=== PATIENT | female | born 1950 | race Caucasian/White ===

== ENCOUNTER → 2018-07-20 | Outpatient (CLI) | payer MEDICARE, MEDICAID ==
[~2018-07-20] MED LIST: ACET-687 PO; ALBU1.25 NEB; AMOX1TAB60 PO; ASPI81TA61 PO; CHOL400T12 PO; FURO-81 PO; GABA300C10 PO; HYDR-3468 PO; LEVO100T PO; LISI-410 PO; METO25TA4 PO; PIPE3.375 IV; PRIM50TA PO; RIFA300C3 PO; SIMV40TA3 PO; THEO400T2 PO
== END | disposition home or self-care (01) ==
LOC: EDBD → NPLAB 11:52
PROVIDERS: ATTEND Internal Medicine Nephrology
DX: I13.0 Hypertensive heart and chronic kidney disease with heart failure and stage 1 through stage 4 chronic kidney disease, or unspecified chronic kidney disease (principal); E11.22 Type 2 diabetes mellitus with diabetic chronic kidney disease; N18.3 Chronic kidney disease, stage 3 (moderate); I50.32 Chronic diastolic (congestive) heart failure
CPT/HCPCS: 36415; 83036; 83970; 84100

== ENCOUNTER → 2018-07-22 | Outpatient (CLI) | payer MEDICARE, MEDICAID ==
[2018-07-22 13:43] LABS: CALCIUM 9.2 mg/dL (8.4-10.5); CARBON DIOXIDE 34.6 mmol/L (20.0-32)
== END | disposition home or self-care (01) ==
LOC: LAB 12:45
PROVIDERS: ATTEND Internal Medicine Nephrology
DX: I12.9 Hypertensive chronic kidney disease with stage 1 through stage 4 chronic kidney disease, or unspecified chronic kidney disease (principal); E11.22 Type 2 diabetes mellitus with diabetic chronic kidney disease; N18.3 Chronic kidney disease, stage 3 (moderate)
CPT/HCPCS: 36415; 80048; 80076; 82565; 84156

== ENCOUNTER → 2018-10-22 | Outpatient (CLI) | payer MEDICARE, MEDICAID | END | disposition home or self-care (01) | LOC: NPLAB 11:58 | PROVIDERS: ATTEND Nurse Practitioner Family | DX: E11.22 Type 2 diabetes mellitus with diabetic chronic kidney disease (principal); I13.0 Hypertensive heart and chronic kidney disease with heart failure and stage 1 through stage 4 chronic kidney disease, or unspecified chronic kidney disease; N18.3 Chronic kidney disease, stage 3 (moderate); I50.32 Chronic diastolic (congestive) heart failure | CPT/HCPCS: 36415; 83036 ==

== ENCOUNTER → 2019-02-04 | Outpatient (CLI) | payer MEDICARE, MEDICAID ==
--- NOTE | 2019-02-04 14:53 | DIREP ---
PROCEDURE:CHEST 2 VIEWS, 3 images [facility], 08/23/2017, 03:38 PM. INDICATIONS:Cor pulmonale (chronic) FINDINGS: LUNGS/PLEURA:No significant pulmonary parenchymal abnormalities. No effusions. VASCULATURE:Mildly increased pulmonary vasculature. CARDIAC:Mild cardiomegaly. MEDIASTINUM:Atherosclerotic aorta with no visible aneurysm. BONES:Mild degenerative disc disease and spondylosis without visible acute abnormalities. OTHER:Prepectoral cardiac monitoring device. CONCLUSION:Mild developing pulmonary edema/CHF. Dictated by: Jay Saba M.D. on 02/04/2019 at 01:37 PM Read in [place]
--- NOTE | 2019-02-04 18:16 | DIREP ---
PROCEDURE:NM LUNG SCAN PERFUSION&VENTIL/GARCIA COMPARISON:None. INDICATIONS:I27.81 Cor pulmonale (chronic) TECHNIQUE:After obtaining the patient's consent, a ventilation/perfusion scan was obtained using9.66 mCi Tc-99m DTPA aerosol and 5.12 mCi Tc-99m MAA intravenous. FINDINGS: VENTILATION:Normal, no significant defects. PERFUSION:No evidence of triple match. Note is made of small peripheral areas of decreased attenuation that may represent underlying pulmonary hypertension. There is subtle areas of decreased attenuation in the right upper lobe that may be sequelae of COPD. There is no evidence of multiple subsegmental defects. V/Q MISMATCH:None significant. CONCLUSION:Low probability for pulmonary embolism. Appearance is consistent with pulmonary hypertension . Correlate clinically. Dictated by: Antony Oden MD on 02/04/2019 at 06:11 PM
== END | disposition home or self-care (01) ==
LOC: RAD 14:05
PROVIDERS: ATTEND Internal Medicine Cardiovascular Disease
DX: I27.81 Cor pulmonale (chronic) (principal)
CPT/HCPCS: 71046; 78582; A9540; A9558

== ENCOUNTER → 2019-02-13 | Outpatient (CLI) | payer MEDICARE, MEDICAID ==
[2019-02-13 13:59] LABS: CALCIUM 8.9 mg/dL (8.4-10.5)
== END | disposition home or self-care (01) ==
LOC: LAB 13:23
PROVIDERS: ATTEND Internal Medicine
DX: I12.9 Hypertensive chronic kidney disease with stage 1 through stage 4 chronic kidney disease, or unspecified chronic kidney disease (principal); E11.22 Type 2 diabetes mellitus with diabetic chronic kidney disease; N18.3 Chronic kidney disease, stage 3 (moderate); J44.9 Chronic obstructive pulmonary disease, unspecified
CPT/HCPCS: 80053

== ENCOUNTER → 2019-03-13 | Outpatient (CLI) | payer MEDICARE, MEDICAID ==
[2019-03-13 10:55] LABS: BASOPHIL % 0.7 % (0.0-0.2); EOSINOPHIL # 0.3 10^3/uL (0.0-0.2); EOSINOPHIL % 6.6 % (0.0-5.0); HEMOGLOBIN 9.9 g/dL (12.0-15.0); LYMPHOCYTES # 0.7 10^3/uL (1.0-4.8); LYMPHOCYTES % 16.5 % (24.0-44.0); MEAN CELL HGB 29.6 pg (26-34); MEAN CELL HGB CONCENTRATION 29.6 g/dL (33-37); MEAN CORP VOLUME 99.7 fL (78-100); MEAN PLATELET VOLUME 11.4 fL (7.8-11.0); MONOCYTES # 0.5 10^3/uL (0.3-0.8); MONOCYTES % 10.8 % (5.0-12.0); NEUTROPHIL # 2.8 10^3/uL (1.8-7.7); NEUTROPHILS % 65.2 % (41.0-85.0); RED CELL DISTRIBUTION WIDTH 17.6 % (11.5-14.5); WHITE BLOOD CELL 4.3 10^3/uL (4.5-11.0)
[2019-03-13 11:16] LABS: CALCIUM 8.6 mg/dL (8.4-10.5); CARBON DIOXIDE 32.6 mmol/L (20.0-32)
== END | disposition home or self-care (01) ==
LOC: NPLAB 10:45
PROVIDERS: ATTEND Internal Medicine Cardiovascular Disease
DX: I13.0 Hypertensive heart and chronic kidney disease with heart failure and stage 1 through stage 4 chronic kidney disease, or unspecified chronic kidney disease (principal); I50.32 Chronic diastolic (congestive) heart failure; E11.22 Type 2 diabetes mellitus with diabetic chronic kidney disease; N18.3 Chronic kidney disease, stage 3 (moderate); E78.5 Hyperlipidemia, unspecified; E03.9 Hypothyroidism, unspecified
CPT/HCPCS: 36415; 80048; 80061; 80076; 85025; 85610

== ENCOUNTER 2019-03-21 19:34 | Emergency (ER) | payer MEDICARE, MEDICAID ==
[~2019-03-21] VITALS: Ht 160 cm; Wt 130.6 kg
[2019-03-21 19:52] VITALS: BP 114/74
--- NOTE | 2019-03-21 19:52 | NUR ---
ARRIVAL PATIENT PRESENTS WITH COMPLAINTS OF SORE TO RIGHT LOWER LEG "ON AND OFF FOR THE PAST 2 YEARS". AMBULATORY WITH WALKER WITH STEADY GAIT. PATIENT REPORTS THAT JACK SETTER REFERRED HER TO ER DUE TO EDEMA, REDNESS, AND WEEPING. DRESSING TO RIGHT LOWER LEG REMOVED BY RN, DRESSING SATURATED. SWELLING, REDNESS AND WEEPING NOTED TO RIGHT LOWER EXTREMITY. PATIENT DENIES FEVER/CHILLS, N/V/D, PAIN. DENIES TAKING ANTIBIOTICS. PATIENT CONNECTED TO MONITOR. VSS. MAXIMILIANO MD NOTIFIED.
--- NOTE | 2019-03-21 20:05 | ER.PDOC ---
General Chief Complaint: Requesting Medical Care Stated Complaint: LEG PAIN Time seen by MD: 20:05 Source: patient Exam Limitations: no limitations History of Present Illness Initial Comments Pt with "sore" on her right leg for about 2 years, recently has gained weight and her leg started weeping, although there is no pain and no fever Onset: other (chronic) Recent Injury: No Where: home Severity: moderate Exacerbated By: nothing Relieved By: nothing Allergies: Coded Allergies: Sulfa (Sulfonamide Antibiotics) (Verified Allergy, Mild, HIVES, 06/24/16) Home Meds Active Scripts Mkqxpcxyciuc-Ebpt-Tnmcbqql,Iso (ZOSYN 3.375 GM PRE MIX-BAG) 3.375 Gm/50 Ml Froz.piggy, 3.375 GM IV Q6HR for 12 Days Prov:RAINER ANGELO MD 10/28/16 Rifampin (RIFAMPIN) 300 Mg Capsule, 300 MG PO BID for 10 Days, CAPSULE Prov:RAINER ANGELO MD 10/28/16 Hydrocodone Bit/Acetaminophen (NORCO 5-325 TABLET) 5-325 Ta1 Ea Tablet, 1 EACH PO Q6HR PRN for PAIN, #20 TABLET 0 Refills Prov:RAINER ANGELO MD 10/28/16 Reported Medications Furosemide (LASIX) 20 Mg Tablet, 1 TAB PO DAILY, #120 TAB 1 Refill 12/08/16 Cholecalciferol (Vitamin D3) (VITAMIN D-400) 400 Unit Tablet, 400 UNIT PO DAILY, TABLET 06/21/16 Primidone (PRIMIDONE) 50 Mg Tablet, 50 MG PO BID, TABLET 06/21/16 Albuterol Sulfate (ALBUTEROL SULFATE) 1.25 Mg/3 Ml Vial.neb, 1 VIAL NEB TID for SHORTNESS OF BREATH, #75 MILLILITER 08/18/14 Aspirin (Children's Aspirin) 81 Mg Tab.chew, 81 MG PO DAILY, TAB.CHEW 08/18/14 Gabapentin (GABAPENTIN) 300 Mg Capsule, 2 CAP PO BID, #90 CAP 1 Refill 08/18/14 Gabapentin (GABAPENTIN) 300 Mg Capsule, 1 CAP PO NOON, #90 CAP 5 Refills 08/18/14 Metoprolol Tartrate 25MG (LOPRESSER 25MG) 25 Mg Tablet, 25 MG PO DAILY for HYPERTENSION, #60 TAB 08/18/14 Levothyroxine Sodium (SYNTHROID) 100 Mcg Tablet, 100 MCG PO DAILY, TABLET 0.5 TAB ON Sundays08/18/14 Simvastatin (SIMVASTATIN) 40 Mg Tablet, 40 MG PO DAILY, TABLET 08/18/14 Past Medical History Surgical History: cholecystectomy, hysterectomy, renal, tonsillectomy Review of Systems Musculoskeletal: see HPI Skin: see HPI All Other Systems: Reviewed and Negative Physical Exam General Appearance: Alert, No Apparent Distress Lower Extremity: swelling (edema, redness and weeping for months, sent by MAGNETIC TAPE TYPEWRITER OPERATOR f or the weeping), pedal edema Joint Exam: joints nml, nml ROM, nml gait/weight bearing Vascular: no vascular compromise, pulses full/equal Neuro/Psych: sensation nml, motor nml, oriented x3, CN's nml as tested, mood/affect nml Skin: warmth/erythema, rash Back/Neck: nml inspection EENT: eyes inspection nml, ENT inspection nml, pharynx nml Respiratory: no resp distress, breath sounds nml CVS: reg rate & rhythm, heart sounds nml Abdomen: non-tender, no organomegaly, no bruit/mass Results/Orders Results/Orders Orders - BRICE VIERA MD Cbc With Auto Diff (03/21/19 20:19) Comprehensive Metabolic Panel (03/21/19 20:19) Wound Culture & Gram Stain (03/21/19 20:34) Vital Signs Date Time Temp Pulse Resp B/P (MAP) Pulse Ox O2 Delivery O2 Flow Rate FiO2 03/21/19 20:09 98.1 80 18 03/21/19 20:09 98.1 80 18 Room Air 03/21/19 19:52 98.1 80 18 114/74 (87) 95 Room Air Laboratory Tests Test 03/21/19 20:34 White Blood Count 4.8 10^3/uL (4.5-11.0) Red Blood Count 3.44 10^6/uL (4.00-5.20) L Hemoglobin 10.2 g/dL (12.0-15.0) L Hematocrit 33.8 % (36.0-46.0) L Mean Corpuscular Volume 98.3 fL (78-100) Mean Corpuscular Hemoglobin 29.7 pg (26-34) Mean Corpuscular Hemoglobin Concent 30.2 g/dL (33-37) L Red Cell Distribution Width 17.8 % (11.5-14.5) H Platelet Count 113 10^3/uL (150-400) L Mean Platelet Volume 11.1 fL (7.8-11.0) H Neutrophils (%) (Auto) 62.8 % (41.0-85.0) Lymphocytes (%) (Auto) 15.0 % (24.0-44.0) L Monocytes (%) (Auto) 13.3 % (5.0-12.0) H Neutrophils # (Auto) 3.0 10^3/uL (1.8-7.7) Lymphocytes # (Auto) 0.7 10^3/uL (1.0-4.8) L Monocytes # (Auto) 0.6 10^3/uL (0.3-0.8) Absolute Immature Granulocyte (auto 0.01 10^3 u/L (0-2) Immature Granulocytes % 0.20 % (0.00-0.50) Eosinophils % 8.3 % (0.0-5.0) H Basophils % 0.4 % (0.0-0.2) H Basophils # 0.0 10^3/uL (0.0-0.1) Eosinophil Count 0.4 10^3/uL (0.0-0.2) H Sodium Level 142 mmol/L (132-145) Potassium Level 4.4 mmol/L (3.6-5.2) Chloride Level 104.0 mmol/L (96-109) Carbon Dioxide Level 30.9 mmol/L (20.0-32) Anion Gap 11.5 Blood Urea Nitrogen 36 mg/dL (7-18) H Creatinine 2.21 mg/dL (0.59-1.40) *H Estimated GFR () 26.7 (>/=60) BUN/Creatinine Ratio 16.0 Glucose Level 119 mg/dL (70-110) H Calcium Level 9.0 mg/dL (8.4-10.5) Total Bilirubin 0.5 mg/dL (0.2-1.0) Aspartate Amino Transferase (AST) 17 U/L (0-35) Alanine Aminotransferase (ALT) 6 U/L (12-78) L Alkaline Phosphatase 64 U/L (50-136) Total Protein 7.2 g/dL (6.4-8.2) Albumin 3.1 g/dL (3.4-5.0) L Globulin 4.1 Departure Time of Disposition: 21:24 Disposition: 01 HOME, SELF-CARE Impression: Primary Impression: Peripheral edema Additional Impression: Chronic dermatitis Condition: Stable Referrals: CORAL RIZO MAGNETIC TAPE TYPEWRITER OPERATOR (PCP) PRIMARY CARE PROVIDER Duration or Time Spent with Pa: 20 Problem Qualifiers BRICE VIERA MD Mar 21, 2019 20:05
[2019-03-21 20:30] VITALS: BP 106/60
--- NOTE | 2019-03-21 20:40 | NUR ---
WOUND CULTURE WOUND CULTURED AND TAKEN TO LAB
[2019-03-21 20:46] LABS: BASOPHIL % 0.4 % (0.0-0.2); EOSINOPHIL # 0.4 10^3/uL (0.0-0.2); EOSINOPHIL % 8.3 % (0.0-5.0); HEMOGLOBIN 10.2 g/dL (12.0-15.0); LYMPHOCYTES # 0.7 10^3/uL (1.0-4.8); MEAN CELL HGB 29.7 pg (26-34); MEAN CELL HGB CONCENTRATION 30.2 g/dL (33-37); MEAN CORP VOLUME 98.3 fL (78-100); MEAN PLATELET VOLUME 11.1 fL (7.8-11.0); MONOCYTES # 0.6 10^3/uL (0.3-0.8); MONOCYTES % 13.3 % (5.0-12.0); NEUTROPHILS % 62.8 % (41.0-85.0); RED CELL DISTRIBUTION WIDTH 17.8 % (11.5-14.5); WHITE BLOOD CELL 4.8 10^3/uL (4.5-11.0)
[2019-03-21 20:59] LABS: CARBON DIOXIDE 30.9 mmol/L (20.0-32)
[2019-03-21] MEDS ORDERED: LASIX ONE (21:22)
[2019-03-21] MEDS ORDERED: LASIX IM STA ×2 (21:23→21:26)
[2019-03-21 21:30] VITALS: BP 108/65
--- NOTE | 2019-03-21 21:45 | NUR ---
DRESSING TELFA AND GAUZE DRESSING APPLIED TO RIGHT LOWER EXTREMITY PER REQUEST OF DR VIERA.
[2019-03-21 22:00] VITALS: BP 114/67
[2019-03-21 22:12] VITALS: BP 114/67
== END 2019-03-21 22:03 | disposition home or self-care (01) ==
LOC: ER 19:34
DX: L30.9 Dermatitis, unspecified (principal); R60.0 Localized edema; Z90.49 Acquired absence of other specified parts of digestive tract; Z90.710 Acquired absence of both cervix and uterus; Z90.89 Acquired absence of other organs; Z98.890 Other specified postprocedural states; Z79.82 Long term (current) use of aspirin; Z79.899 Other long term (current) drug therapy; Z88.8 Allergy status to other drugs, medicaments and biological substances; Z79.891 Long term (current) use of opiate analgesic; Z88.2 Allergy status to sulfonamides
CPT/HCPCS: 36415; 80053; 85025; 87070; 87077; 87186 ×2; 96372; 99284; J1940

== ENCOUNTER → 2019-03-21 | Outpatient (CLI) | payer MEDICARE, MEDICAID | END | disposition home or self-care (01) | LOC: NPLAB 11:26 | PROVIDERS: ATTEND Nurse Practitioner Family | DX: L97.211 Non-pressure chronic ulcer of right calf limited to breakdown of skin (principal) | CPT/HCPCS: 87070; 87077; 87186 ==

== ENCOUNTER → 2019-04-08 | Outpatient (CLI) | payer MEDICARE, MEDICAID ==
[2019-04-08 13:08] LABS: BASOPHIL % 0.6 % (0.0-0.2); EOSINOPHIL # 0.3 10^3/uL (0.0-0.2); EOSINOPHIL % 6.4 % (0.0-5.0); HEMOGLOBIN 9.5 g/dL (12.0-15.0); LYMPHOCYTES # 0.9 10^3/uL (1.0-4.8); LYMPHOCYTES % 18.4 % (24.0-44.0); MEAN CELL HGB CONCENTRATION 30.6 g/dL (33-37); MEAN CORP VOLUME 97.8 fL (78-100); MEAN PLATELET VOLUME 11.7 fL (7.8-11.0); MONOCYTES # 0.7 10^3/uL (0.3-0.8); MONOCYTES % 15.2 % (5.0-12.0); NEUTROPHIL # 2.8 10^3/uL (1.8-7.7); NEUTROPHILS % 59.2 % (41.0-85.0); RED CELL DISTRIBUTION WIDTH 18.4 % (11.5-14.5); WHITE BLOOD CELL 4.7 10^3/uL (4.5-11.0)
[2019-04-08 13:37] LABS: CALCIUM 8.4 mg/dL (8.4-10.5); CARBON DIOXIDE 28.1 mmol/L (20.0-32)
== END | disposition home or self-care (01) ==
LOC: NPLAB 12:22
PROVIDERS: ATTEND Internal Medicine Cardiovascular Disease
DX: E11.40 Type 2 diabetes mellitus with diabetic neuropathy, unspecified (principal); E11.22 Type 2 diabetes mellitus with diabetic chronic kidney disease; I13.0 Hypertensive heart and chronic kidney disease with heart failure and stage 1 through stage 4 chronic kidney disease, or unspecified chronic kidney disease; I50.9 Heart failure, unspecified; N18.3 Chronic kidney disease, stage 3 (moderate); I87.2 Venous insufficiency (chronic) (peripheral); J44.9 Chronic obstructive pulmonary disease, unspecified
CPT/HCPCS: 80048; 80061; 80076; 85025; 85610

== ENCOUNTER → 2019-04-22 | Outpatient (CLI) | payer MEDICARE, MEDICAID ==
[2019-04-22 09:51] LABS: BILIRUBIN,URINE NEGATIVE (NEGATIVE); UROBILINOGEN,URINE NORMAL (NEGATIVE)
[2019-04-22 09:52] LABS: APPEARANCE,URINE CLEAR (CLEAR); UA COLOR YELLOW (YELLOW)
[2019-04-22 10:05] LABS: CALCIUM 8.8 mg/dL (8.4-10.5); CARBON DIOXIDE 34.1 mmol/L (20.0-32)
[2019-04-22 10:11] LABS: ABG PCO2 51.2 mmHg (35.0-45.0); ABG PH 7.383 (7.350-7.450); BE(B) 3.9 mmol/L (-2.0-2.0); HCO3act 29.8 mmol/L (22.0-26.0); pO2 52.7 mmHg (80.0-100.0)
== END | disposition home or self-care (01) ==
LOC: LAB 09:18
PROVIDERS: ATTEND Internal Medicine Infectious Disease
DX: I12.9 Hypertensive chronic kidney disease with stage 1 through stage 4 chronic kidney disease, or unspecified chronic kidney disease (principal); N18.4 Chronic kidney disease, stage 4 (severe); E87.70 Fluid overload, unspecified
CPT/HCPCS: 36415; 36600; 80053; 81002; 82803; 83735

== ENCOUNTER → 2019-05-07 | Outpatient (CLI) | payer MEDICARE, MEDICAID ==
--- NOTE | 2019-05-07 16:54 | DIREP ---
PROCEDURE:Digital Screening Mammogram TECHNIQUE:MLO and CC digital images of each breast are provided. Computer Assisted Detection (CAD) was utilized. COMPARISON:[facility], MAMMO BILATERAL SCREENING, 01/26/2015, 03:37 PM. [facility], MAMMO BILATERAL SCREENING, 04/19/2016, 03:03 PM. INDICATIONS:SCREENING BREAST COMPOSITION:The breasts are almost entirely fatty. FINDINGS:There are no grouped microcalcifications, masses, or architectural distortions to suggest malignancy. There is no significant change as compared with the previous examination(s). IMPRESSION:No mammographic evidence of malignancy. RECOMMENDATIONS:Routine Screening Mammography per [employer] guidelines. OVERALL FINAL ASSESSMENT:BI-RADS 1 - Negative Mammogram Note: This facility participates in a mammography screening patient reminder system. Dictated by: Nakul Mccullough DO on 05/07/2019 at 04:51 PM
--- NOTE | 2019-05-08 07:07 | DIREP ---
PROCEDURE:BONE DENSITY PERIPHERAL INDICATIONS:OSTEOPOROSIS COMPARISON:None. FINDINGS: Femur Proximal RIGHT femur bone mineral density (BMD) (g/cm2): 0.838 T-score : -1.4 Proximal LEFT femur bone mineral density (BMD) (g/cm2): 0.796T-score: -1.7 Lumbar Lumbar bone mineral density (BMD) (g/cm2): 1.396T-score : 1.6 Imaging- No significant findings CONCLUSION:1. Osteopenia 2. Based on the [place] FRAX study, the patient's 10-year probability of a major osteoporotic fracture (clinical spine, forearm, hip or shoulder) is 8.3 %, and the 10-year probability of a hip fracture is 1.1 %. SUGGESTED RECOMMENDATIONS: Normal & Osteopenia:Consideration should be given to use of calcium supplementation, daily multiple vitamins and adequate exercise, as preventive measures against osteoporosis, if clinically indicated. Osteoporosis & Severe Osteoporosis:In addition to the above, consideration should be given to medical therapy against osteoporosis, if clinically indicated. Dictated by: Nakul Mccullough DO on 05/08/2019 at 07:05 AM
== END | disposition home or self-care (01) ==
LOC: RAD 14:23
PROVIDERS: ATTEND Nurse Practitioner Family
DX: Z12.31 Encounter for screening mammogram for malignant neoplasm of breast (principal); M85.88 Other specified disorders of bone density and structure, other site
CPT/HCPCS: 77067; 77080

== ENCOUNTER → 2019-06-13 | Outpatient (CLI) | payer MEDICARE, MEDICAID ==
[~2019-06-13] MED LIST changes: +SIMV40TA20 PO; -SIMV40TA3 PO
[2019-06-13 14:22] LABS: MEAN CORP HGB 30.8 pg (26-34)
[2019-06-13 14:33] LABS: CALCIUM 8.7 mg/dL (8.4-10.5); CARBON DIOXIDE 29.4 mmol/L (20.0-32)
== END | disposition home or self-care (01) ==
LOC: NPLAB 14:11
PROVIDERS: ATTEND Internal Medicine Cardiovascular Disease
DX: I13.0 Hypertensive heart and chronic kidney disease with heart failure and stage 1 through stage 4 chronic kidney disease, or unspecified chronic kidney disease (principal); N18.9 Chronic kidney disease, unspecified
CPT/HCPCS: 80048; 80061; 80076; 85027; 85610

== ENCOUNTER 2019-07-15 09:52 | Emergency (ER) | payer MEDICARE, MEDICAID ==
[~2019-07-15] VITALS: Ht 165.1 cm; Wt 138.3 kg
[2019-07-15 09:52] VITALS: BP 122/83
[2019-07-15] MEDS ORDERED: ULTRAM PO STA (10:40)
--- NOTE | 2019-07-15 10:47 | ER.PDOC ---
General Chief Complaint: Requesting Medical Care Stated Complaint: FALL Time seen by MD: 10:43 Source: patient Exam Limitations: no limitations History of Present Illness Initial Comments Head, neck, left arm and bilateral knee pain S/P fall. Patient was walking out her dog when she tripped and fell. No loss of consciousness. Occurred: just prior to arrival Where: home Severity: moderate Injuries/Pain Location: head, neck, upper extremity, lower extremity Context: Tripped Loss of Consciousness: No Loss of Consciousness Associated Symptoms: neck pain Allergies: Coded Allergies: Sulfa (Sulfonamide Antibiotics) (Verified Allergy, Mild, HIVES, 06/24/16) MEDS Active Scripts Xdbdaxztqcpw-Sadv-Qyyvclzj,Iso (ZOSYN 3.375 GM PRE MIX-BAG) 3.375 Gm/50 Ml Froz.piggy, 3.375 GM IV Q6HR for 12 Days Prov:RAINER ANGELO MD 10/28/16 Rifampin (RIFAMPIN) 300 Mg Capsule, 300 MG PO BID for 10 Days, CAPSULE Prov:RAINER ANGELO MD 10/28/16 Hydrocodone Bit/Acetaminophen (NORCO 5-325 TABLET) 5-325 Ta1 Ea Tablet, 1 EACH PO Q6HR PRN for PAIN, #20 TABLET 0 Refills Prov:RAINER ANGELO MD 10/28/16 Reported Medications Furosemide (LASIX) 20 Mg Tablet, 1 TAB PO DAILY, #120 TAB 1 Refill 12/08/16 Cholecalciferol (Vitamin D3) (VITAMIN D-400) 400 Unit Tablet, 400 UNIT PO DAILY, TABLET 06/21/16 Primidone (PRIMIDONE) 50 Mg Tablet, 50 MG PO BID, TABLET 06/21/16 Albuterol Sulfate (ALBUTEROL SULFATE) 1.25 Mg/3 Ml Vial.neb, 1 VIAL NEB TID for SHORTNESS OF BREATH, #75 MILLILITER 08/18/14 Aspirin (Children's Aspirin) 81 Mg Tab.chew, 81 MG PO DAILY, TAB.CHEW 08/18/14 Gabapentin (GABAPENTIN) 300 Mg Capsule, 2 CAP PO BID, #90 CAP 1 Refill 08/18/14 Gabapentin (GABAPENTIN) 300 Mg Capsule, 1 CAP PO NOON, #90 CAP 5 Refills 08/18/14 Metoprolol Tartrate 25MG (LOPRESSER 25MG) 25 Mg Tablet, 25 MG PO DAILY for HYPERTENSION, #60 TAB 08/18/14 Levothyroxine Sodium (SYNTHROID) 100 Mcg Tablet, 100 MCG PO DAILY, TABLET 0.5 TAB ON Sundays08/18/14 Simvastatin (SIMVASTATIN) 40 Mg Tablet, 40 MG PO DAILY, TABLET 08/18/14 Past Medical History Medical History: congestive heart failure, COPD, diabetes, GERD, hypertension, renal disease, vascular disease Surgical History: angioplasty, cholecystectomy, tonsillectomy Social History Smoking: non-smoker Alcohol Use: none Drug Use: none Review of Systems Constitutional: no symptoms reported Respiratory: no symptoms reported Cardiovascular: no symptoms reported Gastrointestinal: no symptoms reported Musculoskeletal: see HPI All Other Systems: Reviewed and Negative Physical Exam General Appearance: No Apparent Distress, WD/WN Head: No Evidence of Injury Ears, Nose, Mouth, Throat: Hearing Grossly Normal Neck: Tenderness Cardiovascular/Respiratory: Regular Rate, Rhythm, No M/R/G, Normal Peripheral Pulses, No JVD, Normal Breath Sounds, No Respiratory Distress Gastrointestinal: Normal Bowel Sounds, No Organomegaly, No Pulsatile Mass, Non Tender, Soft Back: Normal Inspection, No CVA Tenderness, No Vertebral Tenderness Extremities: Tenderness (left arm and bilateral knees), Other (both legs wrapped with a dressing. 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 NML as Tested, No Motor/Sensory Deficits, Alert, Normal Mood/Affect, Oriented x 3 Melinda Coma Score Best Eye Response: (4) Open Spontaneously Best Verbal Response: (5) Oriented Best Motor Response: (6) Obeys Commands Joint Reduction Joint Reduction : Joint Reduction Site: shoulder (L) Conscious Sedation: Yes Reduction Attempts: 1 Pre-Procedure NV Exam: Yes Post-Procedure NV Exam: Yes Post Joint Reduction Film: joint reduced Results/Orders Results/Orders Orders - JOSE ELIAS JC MD Ct Head Wo Contrast (07/15/19 10:40) Ct Cervical Spine (07/15/19 10:40) Xr Knee Rt 2v (07/15/19 10:40) Xr Knee Lt 2v (07/15/19 10:40) Xr Humerus Lt (07/15/19 10:40) Tramadol Hcl (Ultram) (07/15/19 10:40) Tramadol Hcl (Ultram) (07/15/19 10:50) Diazepam (Valium) (07/15/19 11:56) Morphine Sulfate (Morphine Sulfate) (07/15/19 12:00) Flumazenil (Romazicon) (07/15/19 12:28) Flumazenil (Romazicon) (07/15/19 12:30) Xr Shoulder Lt 1v (07/15/19 12:30) Vital Signs Date Time Temp Pulse Resp B/P (MAP) Pulse Ox O2 Delivery O2 Flow Rate FiO2 07/15/19 12:16 98.2 89 16 130/88 (102) 07/15/19 12:02 98.2 88 16 131/89 (103) 07/15/19 09:52 97.5 85 16 07/15/19 09:52 94.5 85 16 99 Room Air Administered Medications Medications (Trade) Dose Ordered Sig/Manjinder Route PRN Reason Start Time Stop Time Status Last Admin Dose Admin Flumazenil (Romazicon) 0.5 mg STAT STAT IV 07/15/19 12:30 07/15/19 12:31 DC 07/15/19 12:33 0.5 MG Tramadol HCl (Ultram) 50 mg STAT STAT PO 07/15/19 10:40 07/15/19 10:43 DC 07/15/19 11:00 50 MG EKG/XRAY/CT/US XRAY: knee (Nothing acute on both knees) XRAY Comments: Left shoulder dislocation CT Comments: No fracture of C spine and no acute intracranial abnormality XRAY Comments: Successful reduction of left shoulder Departure Time of Disposition: 13:15 Disposition: 01 HOME, SELF-CARE Impression: Primary Impression: Shoulder joint dislocation Additional Impression: Multiple contusions Condition: Improved Referrals: CORAL RIZO MARBLE MACHINE TENDER (PCP) PRIMARY CARE PROVIDER Additional Instructions: Tylenol Leave sling in place until you follow up with Dr. Lackey F/U with Dr. Lackey in 1-2 days, call for appointment Return to ED if worsening symptoms or concerns. Duration or Time Spent with Pa: 45 mins Problem Qualifiers JOSE ELIAS JC MD Jul 15, 2019 10:47
[2019-07-15] MEDS ORDERED: ULTRAM ONE (10:50)
--- NOTE | 2019-07-15 11:31 | DIREP ---
PROCEDURE:XRAY HUMERUS MIN 2 VWS-LT COMPARISON:None. INDICATIONS:Pain/injury S/P fall FINDINGS: BONES:There is anterior dislocation of the left shoulder. The left humeral head is anterior to the glenoid consistent with dislocation. Recommend follow-up left shoulder views. On the AP and lateral views of the left humerus, no fracture of the shaft of the left humerus is seen. No fracture of the left humeral head or neck is seen. JOINTS:Anterior dislocation of the left shoulder. Downsloping acromion causes mild impingement. SOFT TISSUES:Normal. OTHER:No additional findings. CONCLUSION:Anterior dislocation of the left shoulder. No fracture seen in the left humerus. Dictated by: Carson Cui MD on 07/15/2019 at 11:29 AM
--- NOTE | 2019-07-15 11:32 | DIREP ---
PROCEDURE:XRAY KNEE 2 VWS-LT COMPARISON:None. INDICATIONS:Pain/injury S/P fall FINDINGS: BONES:Three views of the left knee. Left knee arthroplasty seen with mild valgus deformity of the left knee. Epiphyseal line of fusion involving the left proximal fibula on the AP view. No fracture is seen on the lateral view. No definite evidence for loosening is seen. No joint effusion or loose bodies identified. JOINTS:Normal. SOFT TISSUES:Normal. OTHER:No additional findings. CONCLUSION:Left knee arthroplasty. No acute fracture is seen. No evidence for loosening. Dictated by: Carson Cui MD on 07/15/2019 at 11:30 AM
--- NOTE | 2019-07-15 11:34 | DIREP ---
PROCEDURE:CT HEAD OR BRAIN W/O CONTRAST COMPARISON:None. INDICATIONS:Pain/injury S/P fall TECHNIQUE:CT images were created without intravenous contrast. FINDINGS: VENTRICLES:The ventricles are normal in size and configuration. CEREBRUM:Normal cerebral morphology with appropriate lagos white matter differentiation. Mild basal ganglia calcifications. CEREBELLUM:Cerebellar calcifications. BRAINSTEM:Negative. BASAL CISTERNS:Negative. HEMORRHAGE:No MASS LESION:No ACUTE INFARCT:No SKULL:Normal. SINUSES:Normal. OTHER:None CONCLUSION: 1. No acute findings. Dictated by: Tushar Michaels MD on 07/15/2019 at 11:22 AM
--- NOTE | 2019-07-15 11:34 | DIREP ---
PROCEDURE:XRAY KNEE 2 VWS-RT COMPARISON:None. INDICATIONS:Pain/injury S/P fall FINDINGS: BONES:AP and lateral views of the right knee. High riding patella. Right knee arthroplasty noted. No radiographic evidence for loosening. No fracture is seen in the distal right femur, the tibial plateau or the proximal right fibula. No obvious joint effusion or loose bodies are seen. JOINTS:Right knee arthroplasty. 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 SOFT TISSUES:Normal. OTHER:No additional findings. CONCLUSION:Right knee arthroplasty. 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 Dictated by: Carson Cui MD on 07/15/2019 at 11:32 AM
--- NOTE | 2019-07-15 11:38 | DIREP ---
PROCEDURE:CT CERVICAL SPINE WITHOUT CONTRAST TECHNIQUE:Axial cuts were obtained through the cervical spine. The images were viewed at bone and soft tissue settings. Sagittal and coronal reconstructions are provided. COMPARISON:None. INDICATIONS:Pain/injury S/P fall FINDINGS: ALIGNMENT:Normal. VERTEBRAE:Normal. Limited for visualization of the C7 spinous process. Unfused posterior arch of C1. No acute deformities. PARASPINAL AREA:Normal. OTHER:Numerous surgical clips in the neck bilaterally. CERVICAL DISC LEVELS Prominent right C2-3 and C3-4 facet arthropathy. Mild disc space narrowing at C5-6, [id number]-do-nubdibsg disc space narrowing at C6-7. Dorsal disc bulges are present at C5-6 and C6-7. CONCLUSION: 1. Limited for the C7 spinous process. 2. No fractures or subluxations. 3. Prominent right C2-3 and C3-4 facet arthropathy. 4. Mild C5-6 and gjzq-mz-yucbrsce C6-7 degenerative disc disease. Dictated by: Tushar Michaels MD on 07/15/2019 at 11:33 AM
[2019-07-15] MEDS ORDERED: VALIUM ONE (11:56)
[2019-07-15] MEDS ORDERED: MORPHINE SULFATE ONE (12:00)
[2019-07-15 12:02] VITALS: BP 131/89
[2019-07-15 12:16] VITALS: BP 130/88
[2019-07-15] MEDS ORDERED: ROMAZICON IV ONE (12:28)
[2019-07-15] MEDS ORDERED: ROMAZICON IV STA (12:30)
--- NOTE | 2019-07-15 12:48 | DIREP ---
PROCEDURE:XRAY SHOULDER 1 VW-LT COMPARISON:[facility], CR, XRAY HUMERUS MIN 2 VWS-LT, 07/15/2019, 11:17 AM. INDICATIONS:S/P reduction FINDINGS: BONES:The anterior dislocation of the left shoulder has been reduced. No obvious Hill-Sachs or Bankart lesion is seen. Downsloping acromion causes impingement JOINTS:Normal glenohumeral and acromioclavicular joints. No gross evidence for dislocation. SOFT TISSUES:Normal. OTHER:No obvious left upper rib fractures or pneumothorax is seen. CONCLUSION:Reduction of the anterior dislocation of the left shoulder. No Hill-Sachs or Bankart lesion is seen. Dictated by: Carson Cui MD on 07/15/2019 at 12:46 PM
[2019-07-15 13:30] VITALS: BP 128/82
== END 2019-07-15 13:35 | disposition home or self-care (01) ==
LOC: ER 09:52 → EDBD 09:52 → ER 13:35
DX: S43.085A Other dislocation of left shoulder joint, initial encounter (principal); W01.0XXA Fall on same level from slipping, tripping and stumbling without subsequent striking against object, initial encounter; Y93.89 Activity, other specified; Y92.098 Other place in other non-institutional residence as the place of occurrence of the external cause; Y99.8 Other external cause status; S80.02XA Contusion of left knee, initial encounter; S80.01XA Contusion of right knee, initial encounter; S10.93XA Contusion of unspecified part of neck, initial encounter; E11.9 Type 2 diabetes mellitus without complications; I11.0 Hypertensive heart disease with heart failure; I50.9 Heart failure, unspecified; J44.9 Chronic obstructive pulmonary disease, unspecified; K21.9 Gastro-esophageal reflux disease without esophagitis; Y93.01 Activity, walking, marching and hiking; Z79.82 Long term (current) use of aspirin; Z79.899 Other long term (current) drug therapy; Z88.2 Allergy status to sulfonamides; Z90.49 Acquired absence of other specified parts of digestive tract
CPT/HCPCS: 23650; 70450; 72125; 73020; 73060; 73560 ×2; 96374; 99152; 99153; 99285; J2270; J3360; J3490

== ENCOUNTER 2019-07-16 05:44 | Emergency (ER) | payer MEDICARE, MEDICAID ==
[~2019-07-16] VITALS: Ht 157.5 cm; Wt 136.1 kg
[2019-07-16] VITALS (7 sets, daily range): BP systolic 101–137; BP diastolic 48–78
[2019-07-16 06:22] LABS: BASOPHIL % 0.6 % (0.0-0.2); EOSINOPHIL # 0.2 10^3/uL (0.0-0.2); EOSINOPHIL % 2.8 % (0.0-5.0); HEMOGLOBIN 9.3 g/dL (12.0-15.0); LYMPHOCYTES # 0.7 10^3/uL (1.0-4.8); LYMPHOCYTES % 12.9 % (24.0-44.0); MEAN CELL HGB 31.3 pg (26-34); MEAN CELL HGB CONCENTRATION 30.8 g/dL (33-37); MEAN CORP VOLUME 101.7 fL (78-100); MEAN PLATELET VOLUME 10.3 fL (7.8-11.0); MONOCYTES # 0.9 10^3/uL (0.3-0.8); NEUTROPHIL # 3.7 10^3/uL (1.8-7.7); NEUTROPHILS % 67.5 % (41.0-85.0); RED CELL DISTRIBUTION WIDTH 17.3 % (11.5-14.5); WHITE BLOOD CELL 5.4 10^3/uL (4.5-11.0)
--- NOTE | 2019-07-16 06:33 | NUR ---
US ATTEMPTED TO NOTIFY MALIKA IN RAD FOR NEED FOR ULTRASOUND. NO ANSWER
[2019-07-16] MEDS ORDERED: MORPHINE SULFATE IV STA (06:36)
[2019-07-16 06:41] LABS: CALCIUM 8.8 mg/dL (8.4-10.5); CARBON DIOXIDE 28.7 mmol/L (20.0-32)
--- NOTE | 2019-07-16 06:44 | ER.PDOC ---
General Chief Complaint: Extremities Stated Complaint: LEFT ARM PAIN Time seen by MD: 06:37 Source: patient Exam Limitations: no limitations History of Present Illness Initial Comments Left arm pain S/P fall yesterday. Shoulder was dislocated and successfully reduced. A sling was applied and patient told to follow up with Dr. Lackey. She is back today because of pain. Occurred: yesterday Recent Injury: Yes Context: Fall Where: home Severity: moderate Exacerbated By: movement of Relieved By: nothing Quality: pain, swelling, tenderness Allergies: Coded Allergies: Sulfa (Sulfonamide Antibiotics) (Verified Allergy, Mild, HIVES, 06/24/16) Home Meds Active Scripts Cmgbqznoilqs-Emrw-Gbziuhbp,Iso (ZOSYN 3.375 GM PRE MIX-BAG) 3.375 Gm/50 Ml Froz.piggy, 3.375 GM IV Q6HR for 12 Days Prov:RAINER ANGELO MD 10/28/16 Rifampin (RIFAMPIN) 300 Mg Capsule, 300 MG PO BID for 10 Days, CAPSULE Prov:RAINER ANGELO MD 10/28/16 Hydrocodone Bit/Acetaminophen (NORCO 5-325 TABLET) 5-325 Ta1 Ea Tablet, 1 EACH PO Q6HR PRN for PAIN, #20 TABLET 0 Refills Prov:RAINER ANGELO MD 10/28/16 Reported Medications Furosemide (LASIX) 20 Mg Tablet, 1 TAB PO DAILY, #120 TAB 1 Refill 12/08/16 Cholecalciferol (Vitamin D3) (VITAMIN D-400) 400 Unit Tablet, 400 UNIT PO DAILY, TABLET 06/21/16 Primidone (PRIMIDONE) 50 Mg Tablet, 50 MG PO BID, TABLET 06/21/16 Albuterol Sulfate (ALBUTEROL SULFATE) 1.25 Mg/3 Ml Vial.neb, 1 VIAL NEB TID for SHORTNESS OF BREATH, #75 MILLILITER 08/18/14 Aspirin (Children's Aspirin) 81 Mg Tab.chew, 81 MG PO DAILY, TAB.CHEW 08/18/14 Gabapentin (GABAPENTIN) 300 Mg Capsule, 2 CAP PO BID, #90 CAP 1 Refill 08/18/14 Gabapentin (GABAPENTIN) 300 Mg Capsule, 1 CAP PO NOON, #90 CAP 5 Refills 08/18/14 Metoprolol Tartrate 25MG (LOPRESSER 25MG) 25 Mg Tablet, 25 MG PO DAILY for HYPERTENSION, #60 TAB 1/5/15 Levothyroxine Sodium (SYNTHROID) 100 Mcg Tablet, 100 MCG PO DAILY, TABLET 0.5 TAB ON Sundays08/18/14 Simvastatin (SIMVASTATIN) 40 Mg Tablet, 40 MG PO DAILY, TABLET 08/18/14 Past Medical History Medical History: COPD, diabetes Surgical History: appendectomy Social History Alcohol Use: none Drug Use: none Review of Systems Constitutional: no symptoms reported EENTM: no symptoms reported Respiratory: no symptoms reported Cardiovascular: no symptoms reported Gastrointestinal: no symptoms reported Musculoskeletal: see HPI All Other Systems: Reviewed and Negative Physical Exam General Appearance: alert, no distress, other (obese) Upper Extremity: tenderness (left arm), swelling (with mild edema), limited ROM Skin: color nml, warm/dry Vascular: no vascular compromise Neuro/Psych: sensation nml, motor nml Central Exam: oriented X3, CN's nml as tested, nml speech, nml cognition, nml mood/affect Neck/Back: nml inspection Respiratory: no resp distress, breath sounds nml CVS: reg rate & rhythm, heart sounds nml Abdomen: non-tender, no organomegaly, nml bowels sounds Joint Reduction Joint Reduction : Joint Reduction Site: shoulder (L) Conscious Sedation: Yes Reduction Attempts: 1 Pre-Procedure NV Exam: Yes Post-Procedure NV Exam: Yes Post Joint Reduction Film: joint reduced Progress Shoulder reduced using traction/counter-traction. Additional Procedures Progress Conscious sedation: Pt sedated using propofol, 60mg over 1 min administered. Pt sedated well, no hypoxia or complications. No hypotension, no reversal needed. Pt tolerated procedure well. Pt re-eval'd after sedation and was back to baseline mental status. See sheet for times. Results/Orders Results/Orders Orders - ZANDER VILLA DO Propofol/Pf (Diprivan) (07/16/19 07:52) 0.9 % Sodium Chloride (Ns 500ml) (07/16/19 08:26) Xr Shoulder Lt 1v (07/16/19 09:11) Vital Signs Date Time Temp Pulse Resp B/P (MAP) Pulse Ox O2 Delivery O2 Flow Rate FiO2 07/16/19 05:44 97.9 114 20 132/70 (90) 97 Nasal Canula 2.00 07/16/19 05:44 97.9 114 20 97 07/16/19 05:44 97.9 114 20 Administered Medications Medications (Trade) Dose Ordered Sig/Manjinder Route PRN Reason Start Time Stop Time Status Last Admin Dose Admin Morphine Sulfate (Morphine Sulfate) 4 mg STAT STAT IV 07/16/19 06:36 07/16/19 06:37 DC 07/16/19 07:10 4 MG Laboratory Tests Test 07/16/19 06:15 White Blood Count 5.4 10^3/uL (4.5-11.0) Red Blood Count 2.97 10^6/uL (4.00-5.20) L Hemoglobin 9.3 g/dL (12.0-15.0) L Hematocrit 30.2 % (36.0-46.0) L Mean Corpuscular Volume 101.7 fL (78-100) H Mean Corpuscular Hemoglobin 31.3 pg (26-34) Mean Corpuscular Hemoglobin Concent 30.8 g/dL (33-37) L Red Cell Distribution Width 17.3 % (11.5-14.5) H Platelet Count 133 10^3/uL (150-400) L Mean Platelet Volume 10.3 fL (7.8-11.0) Neutrophils (%) (Auto) 67.5 % (41.0-85.0) Lymphocytes (%) (Auto) 12.9 % (24.0-44.0) L Monocytes (%) (Auto) 16.0 % (5.0-12.0) H Neutrophils # (Auto) 3.7 10^3/uL (1.8-7.7) Lymphocytes # (Auto) 0.7 10^3/uL (1.0-4.8) L Monocytes # (Auto) 0.9 10^3/uL (0.3-0.8) H Absolute Immature Granulocyte (auto 0.01 10^3 u/L (0-2) Immature Granulocytes % 0.20 % (0.00-0.50) Eosinophils % 2.8 % (0.0-5.0) Basophils % 0.6 % (0.0-0.2) H Basophils # 0.0 10^3/uL (0.0-0.1) Eosinophil Count 0.2 10^3/uL (0.0-0.2) Prothrombin Time 12.0 SEC (9.4-11.5) H Prothrombin Time INR (Non-Therap) 1.2 Activated Partial Thromboplast Time 29.1 SEC (24.67-30.72) D-Dimer 0.88 mg/L (0.19-0.49) *H Sodium Level 140 mmol/L (132-145) Potassium Level 4.6 mmol/L (3.6-5.2) Chloride Level 103.0 mmol/L (96-109) Carbon Dioxide Level 28.7 mmol/L (20.0-32) Anion Gap 12.9 Blood Urea Nitrogen 38 mg/dL (7-18) H Creatinine 2.24 mg/dL (0.59-1.40) *H Estimated GFR () 26.2 (>/=60) BUN/Creatinine Ratio 16.0 Glucose Level 132 mg/dL (70-110) H Calcium Level 8.8 mg/dL (8.4-10.5) Total Bilirubin 1.0 mg/dL (0.2-1.0) Aspartate Amino Transferase (AST) 17 U/L (0-35) Alanine Aminotransferase (ALT) 11 U/L (12-78) L Alkaline Phosphatase 78 U/L (50-136) Total Protein 7.8 g/dL (6.4-8.2) Albumin 3.1 g/dL (3.4-5.0) L Globulin 4.7 Progress Progress Care of patient transferred to Dr. Villa at 7am x-ray shows good reduction of GH dislocation.Pt was neuro intact after reduction. Spoke with hospitalist, asked to transfer due to cardio-renal failure, no nephro availability here, no cardiology on-call. Pt is unable to care for herself as she needs significant assistance to even get out of bed. Home health nurse called here with concern for the pt and confirmed pt's inability to care for self. I spoke with [facility] and pt was accepted by Dr. Pedersen. 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
[2019-07-16] MEDS ORDERED: MORPHINE SULFATE ONE (06:47)
--- NOTE | 2019-07-16 07:32 | DIREP ---
PROCEDURE:XRAY FOREARM 2 VWS-LT COMPARISON:None. INDICATIONS:Pain/injury FINDINGS: BONES:Normal. JOINTS:Degenerative changes. SOFT TISSUES:Diffuse reticular superficial soft tissue edema. OTHER:No additional findings. CONCLUSION:No acute bony abnormality. Dictated by: Radha Robins MD on 07/16/2019 at 07:29 AM
--- NOTE | 2019-07-16 07:34 | DIREP ---
PROCEDURE:XRAY HUMERUS 1 VWS-LT COMPARISON:[facility], CR, XRAY SHOULDER 1 VW-LT, 07/15/2019, 12:26 PM. [facility], CR, XRAY HUMERUS MIN 2 VWS-LT, 07/15/2019, 11:17 AM. INDICATIONS:Pain/injury, fall FINDINGS: BONES:No acute fracture seen. JOINTS:Persistent anterior glenohumeral dislocation with impaction of the posterior lateral humeral head against the inferior glenoid. Degenerative changes. SOFT TISSUES:Normal. OTHER:No additional findings. CONCLUSION:Persistent left anterior glenohumeral dislocation. Dictated by: Radha Robins MD on 07/16/2019 at 07:31 AM
[2019-07-16] MEDS ORDERED: DIPRIVAN 100 ML IV ONE (07:52)
[2019-07-16] MEDS ORDERED: NS 500ML 500 ML IV ONE (08:26)
--- NOTE | 2019-07-16 08:53 | NUR ---
UPDATE CALLED RT TO ROOM FOR REDUCTION.
--- NOTE | 2019-07-16 08:59 | NUR ---
UPDATE DR. MUELLER AT BEDSIDE FOR LEFT SHOULDER REDUCATION. SEE MODERATE SEDATION PAPER DOCUMENTATION.
--- NOTE | 2019-07-16 09:15 | NUR ---
UPDATE DR. MUELLER ON THE PHONE WITH DR. ROOT ABOUT ADMIT.
--- NOTE | 2019-07-16 09:25 | NUR ---
UPDATE DR. MUELLER ON THE PHONE WITH [facility] ABOUT TRANSFER PATIENT NOT ACCEPTED BY DR. ROOT.
--- NOTE | 2019-07-16 09:36 | DIREP ---
PROCEDURE:XRAY SHOULDER 1 VW-LT COMPARISON:[facility], CR, XRAY HUMERUS MIN 2 VWS-LT, 07/16/2019, 06:25 AM. [facility], CR, XRAY FOREARM 2 VWS-LT, 07/16/2019, 06:25 AM. [facility], CR, XRAY SHOULDER 1 VW-LT, 07/15/2019, 12:26 PM. INDICATIONS:post-reduction FINDINGS: A slightly oblique view of the left shoulder region demonstrates normal articulation between the humeral head and the bony glenoid process. AC joint is unremarkable. No fracture line or fracture fragments identified on this limited oblique view. CONCLUSION:Compared to the earlier film the same date, a previously identified anterior dislocation of the left glenohumeral joint has been reduced. Dictated by: Miguel Hardin M.D. on 07/16/2019 at 09:32 AM
--- NOTE | 2019-07-16 09:55 | NUR ---
UPDATE RECEIVED CALL FROM [facility] AND THEY ARE WAITING FOR ROOM AND WILL CALL BACK WHEN ONE IS AVAILABLE.
--- NOTE | 2019-07-16 11:10 | NUR ---
UPDATE RECEIVED CALL FROM [facility] AND PATIENT WILL BE ADMITTED TO ROOM [id number].
--- NOTE | 2019-07-16 11:55 | NUR ---
UPDATE CALLED DISPATCH FOR EMS TO TRANSPORT TO [facility].
--- NOTE | 2019-07-16 12:50 | NUR ---
REPORT REPORT CALLED TO BOSSMAN AT [facility]
== END 2019-07-16 12:30 | disposition other institution (70) ==
LOC: EDBD 05:44 → ER 05:44
DX: S43.005A Unspecified dislocation of left shoulder joint, initial encounter (principal); J44.9 Chronic obstructive pulmonary disease, unspecified; E11.9 Type 2 diabetes mellitus without complications; I50.9 Heart failure, unspecified; N18.3 Chronic kidney disease, stage 3 (moderate); Z90.49 Acquired absence of other specified parts of digestive tract; Z79.899 Other long term (current) drug therapy; W19.XXXA Unspecified fall, initial encounter; Y93.89 Activity, other specified; Y92.098 Other place in other non-institutional residence as the place of occurrence of the external cause; Y99.8 Other external cause status
CPT/HCPCS: 23650; 36415; 73020; 73060; 73090; 80053; 82948; 85025; 85379; 85610; 85730; 96374; 99285; J2270; J7040

== ENCOUNTER 2019-07-28 09:45 | Emergency (ER) | payer MEDICARE, MEDICAID ==
[2019-07-28] VITALS (8 sets, daily range): BP systolic 62–132; BP diastolic 31–76
--- NOTE | 2019-07-28 09:45 | NUR ---
ARRIVAL PATIENT ARRIVED VIA EMS AND RECEIVED REPORT. DR. RODRIGUEZ AT BEDSIDE. SHE WAS AWAKE AND RESPOSIVE TO PAINFUL STIMULI MOANING. PATIENT HYPOXIC AT TIME OF ARRIVAL ON NRB MASK. ABG PBTAINED AND PATIENT WAS THEN PLACED ON BIPAP BY RT. PATIENT MORE COMFORTABLE AFTER PLACING ON BI PAP.
[2019-07-28] MEDS ORDERED: NS 1000ML 1,000 ML IV ONE ×2 (10:00→14:30)
--- NOTE | 2019-07-28 10:01 | ER.PDOC ---
General Stated Complaint: U/U Time seen by : 09:45 Source: patient Exam Limitations: clinical condition History of Present Illness Initial Comments Pt reportedly found in bed at [facility] with altered mental status. Moaning, poorly responsive. Answers simple questions, states she hurts all over. Tachypneic. Reportedly appeared well last PM. No known trauma Timing/Duration: 1-3 hours Character of AMS: disoriented, confused, decreased responsiveness Context: [facility] resident Usually: orientedx3 Decreased Ability to Stand: weak, cannot stand Associated Symptoms: other (Unable to fully assess, states she "hurts all over".) Prior symptoms/Treatment: Recenly Seen, Treated by Doctor Allergies: Coded Allergies: Sulfa (Sulfonamide Antibiotics) (Verified Allergy, Mild, HIVES, 06/24/16) Home Meds Active Scripts Vfvetrmcvxxo-Dtte-Ashmdxsa,Iso (ZOSYN 3.375 GM PRE MIX-BAG) 3.375 Gm/50 Ml Froz.piggy, 3.375 GM IV Q6HR for 12 Days Prov:RAINER ANGELO MD 10/28/16 Rifampin (RIFAMPIN) 300 Mg Capsule, 300 MG PO BID for 10 Days, CAPSULE Prov:RAINER ANGELO MD 10/28/16 Hydrocodone Bit/Acetaminophen (NORCO 5-325 TABLET) 5-325 Ta1 Ea Tablet, 1 EACH PO Q6HR PRN for PAIN, #20 TABLET 0 Refills Prov:RAINER ANGELO MD 10/28/16 Reported Medications Furosemide (LASIX) 20 Mg Tablet, 1 TAB PO DAILY, #120 TAB 1 Refill 12/08/16 Cholecalciferol (Vitamin D3) (VITAMIN D-400) 400 Unit Tablet, 400 UNIT PO DAILY, TABLET 06/21/16 Primidone (PRIMIDONE) 50 Mg Tablet, 50 MG PO BID, TABLET 06/21/16 Albuterol Sulfate (ALBUTEROL SULFATE) 1.25 Mg/3 Ml Vial.neb, 1 VIAL NEB TID for SHORTNESS OF BREATH, #75 MILLILITER 08/18/14 Aspirin (Children's Aspirin) 81 Mg Tab.chew, 81 MG PO DAILY, TAB.CHEW 08/18/14 Gabapentin (GABAPENTIN) 300 Mg Capsule, 2 CAP PO BID, #90 CAP 1 Refill 08/18/14 Gabapentin (GABAPENTIN) 300 Mg Capsule, 1 CAP PO NOON, #90 CAP 5 Refills 08/18/14 Metoprolol Tartrate 25MG (LOPRESSER 25MG) 25 Mg Tablet, 25 MG PO DAILY for HYPERTENSION, #60 TAB 08/18/14 Levothyroxine Sodium (SYNTHROID) 100 Mcg Tablet, 100 MCG PO DAILY, TABLET 0.5 TAB ON Sundays08/18/14 Simvastatin (SIMVASTATIN) 40 Mg Tablet, 40 MG PO DAILY, TABLET 08/18/14 Past Medical History Medical History: cardiac problems, COPD, diabetes, hypertension, other (anemia, chronic kidney dz, NIDDM, CHF) Review of Systems Constitutional: malaise, weakness Eyes: no symptoms reported Ears, Nose, Mouth, Throat: no symptoms reported Respiratory: shortness of breath Cardiovascular: no symptoms reported Gastrointestinal: abdominal pain Genitourinary: no symptoms reported Musculoskeletal: no symptoms reported Skin: no symptoms reported Psychiatric/Neurological: cognitive dysfunction Endocrine: no symptoms reported Hematologic/Lymphatic: no symptoms reported Physical Exam General Appearance: moderate distress, anxious HEENT: no apparent trauma, EOM's intact, no nystagmus, PERRL, ENT inspection nml, airway intact Neuro/Psych: disoriented to place, disoriented to time, abnml cognition Cranial Nerves: nml as tested Peripheral Exam: motor nml, sensation nml Respiratory: breath sounds nml, resp distress CVS: tachycardia, other (4+ woody edema legs) Abdomen: tenderness Extremities: pedal edema Results/Orders Results/Orders Orders - MIMI RODRIGUEZ MD Cbc With Auto Diff (07/28/19 09:55) Comprehensive Metabolic Panel (07/28/19 09:55) Blood Culture (07/28/19 09:55) Urine Culture (07/28/19 09:55) Urinalysis (07/28/19 09:55) Influenza A&B (07/28/19 09:55) Xr Chest 1v (07/28/19 09:58) Lactic Acid(Ml) (07/28/19 12:00) Start Iv (07/28/19 09:55) [place] To [place] (07/28/19 09:55) Arterial Blood Gas (07/28/19 09:55) Ekg-Routine (07/28/19 09:56) Creatine Kinase (07/28/19 09:55) Creatine Kinase Mb (07/28/19 09:55) Troponin I (07/28/19 09:55) 0.9 % Sodium Chloride (Ns 1000ml) (07/28/19 10:00) Ct Chest Wo Iv Contrast (07/28/19 10:00) Ct Head Wo Contrast (07/28/19 10:13) Sodium Polystyrene Sulfon/Sorb (Sps) (07/28/19 11:08) Lactic Acid(Ml) (07/28/19 UNK) Vancomycin Hcl (Vancomycin Hcl) (07/28/19 11:30) Piperacillin Sodium/Tazobactam (Zosyn 4. (07/28/19 11:30) Ct Abd Wo Iv Contrast (07/28/19 10:01) Probnp B-Type Creative Writing Professor (07/28/19 12:18) Arterial Blood Gas (07/28/19 12:18) 0.9 % Sodium Chloride (Ns 100ml) (07/28/19 12:41) 0.9 % Sodium Chloride (Ns 1000ml) (07/28/19 14:30) Dopamine Hcl In Dextrose 5 % (Dopamine 4 (07/28/19 14:30) Promethazine Hcl (Phenergan) (07/28/19 14:22) Morphine Sulfate (Morphine Sulfate) (07/28/19 14:23) Vital Signs Date Time Temp Pulse Resp B/P (MAP) Pulse Ox O2 Delivery O2 Flow Rate FiO2 07/28/19 14:04 90 76/36 (49) 94 Bi Pap 07/28/19 14:04 90 76/44 (55) 94 Bi Pap 07/28/19 13:57 89 76/44 (55) 94 Bi Pap 07/28/19 13:50 99 74/33 (47) 94 Bi Pap 07/28/19 11:27 93 28 90 S/T 33 07/28/19 10:50 90 110/55 (73) 94 Bi Pap 07/28/19 10:43 99.3 93 28 100 07/28/19 09:50 99.3 89 28 07/28/19 09:50 99.3 89 28 109/59 (76) 100 Non-Rebreather Administered Medications Medications (Trade) Dose Ordered Sig/Manjinder Route PRN Reason Start Time Stop Time Status Last Admin Dose Admin Piperacillin Sod/ Tazobactam Sod 4.5 gm/Sodium Chloride 100 ml @ 100 mls/hr OT IV 07/28/19 11:30 08/27/19 11:29 07/28/19 13:22 100 MLS/HR Sodium Chloride 1,000 ml @ 0 mls/hr Q0M ONCE IV 07/28/19 10:00 07/28/19 10:01 UNV 07/28/19 10:09 1,000 MLS/HR Laboratory Tests Test 07/28/19 10:25 07/28/19 10:28 07/28/19 10:40 07/28/19 12:04 White Blood Count 16.1 10^3/uL (4.5-11.0) H Red Blood Count 3.06 10^6/uL (4.00-5.20) L Hemoglobin 9.4 g/dL (12.0-15.0) L Hematocrit 31.5 % (36.0-46.0) L Mean Corpuscular Volume 102.9 fL (78-100) H Mean Corpuscular Hemoglobin 30.7 pg (26-34) Mean Corpuscular Hemoglobin Concent 29.8 g/dL (33-37) L Red Cell Distribution Width 16.3 % (11.5-14.5) H Platelet Count 208 10^3/uL (150-400) Mean Platelet Volume 10.0 fL (7.8-11.0) Neutrophils (%) (Auto) 80.7 % (41.0-85.0) Lymphocytes (%) (Auto) 4.8 % (24.0-44.0) *L Monocytes (%) (Auto) 13.1 % (5.0-12.0) H Neutrophils # (Auto) 13.0 10^3/uL (1.8-7.7) H Lymphocytes # (Auto) 0.8 10^3/uL (1.0-4.8) L Monocytes # (Auto) 2.1 10^3/uL (0.3-0.8) H Absolute Immature Granulocyte (auto 0.18 10^3 u/L (0-2) Immature Granulocytes % 1.10 % (0.00-0.50) H Eosinophils % 0.0 % (0.0-5.0) Basophils % 0.3 % (0.0-0.2) H Basophils # 0.1 10^3/uL (0.0-0.1) Eosinophil Count 0.0 10^3/uL (0.0-0.2) Sodium Level 135 mmol/L (132-145) Potassium Level 6.2 mmol/L (3.6-5.2) *H Chloride Level 101.0 mmol/L (96-109) Carbon Dioxide Level 29.1 mmol/L (20.0-32) Anion Gap 11.1 Blood Urea Nitrogen 57 mg/dL (7-18) H Creatinine 2.69 mg/dL (0.59-1.40) *H Estimated GFR () 21.2 (>/=60) BUN/Creatinine Ratio 21.0 Glucose Level 79 mg/dL (70-110) Lactic Acid Level 4.0 mmol/L (0.50-2.00) H Calcium Level 9.1 mg/dL (8.4-10.5) Total Bilirubin 0.9 mg/dL (0.2-1.0) Aspartate Amino Transferase (AST) 7061 U/L (0-35) H Alanine Aminotransferase (ALT) 3737 U/L (12-78) H Alkaline Phosphatase 123 U/L (50-136) Total Creatine Kinase 166 U/L (26-192) Creatine Kinase MB 1.4 ng/mL (0.5-3.6) Troponin I 0.55 ng/mL (0.00-0.05) H Total Protein 6.6 g/dL (6.4-8.2) Albumin 2.4 g/dL (3.4-5.0) L Globulin 4.2 Influenza Type A Antigen NEGATIVE (NEG) Influenza B Immunofluorescence NEGATIVE (NEG) Blood Gas Sample Site RT BRACIAL ARTERY Blood pH 7.212 (7.350-7.450) Blood Gas PCO2 73.3 mmHg (35.0-45.0) *H Blood Gas PO2 161.1 mmHg (80.0-100.0) H Blood Gas HCO3 28.8 mmol/L (22.0-26.0) H Blood Gas Base Excess -0.3 mmol/L (-2.0-2.0) Constantine Test N/A Arterial Blood Oxygen Saturation 98.3 % (94.0-97.00) H Deoxyhemoglobin 1.7 % (0.0-5.0) Carboxyhemoglobin 0.8 % (0.0-3.9) Methemoglobin 0.3 % (0.00-5.0) Total Hemoglobin 10.6 % (12.0-17.8) L Total Oxygen Concentration 14.8 % (13.5-17.5) Blood Gas Temperature 37 Oxygen Delivery Method HI CON FiO2 100.0 % (20-101) Bicarbonate 31.0 mmol/L (23-27) H Differential Total Cells Counted 100 #CELLS Segmented Neutrophils 80 % (31-76) H Band Neutrophils 1 % (2-6) L Lymphocytes 6 % (25-36) L Monocytes 13 % (3-9) H Platelet Estimate ADEQUATE Platelet Morphology NORMAL Polychromasia 1+ (NEGATIVE) Hypochromasia 1+ (NEGATIVE) Anisocytosis 1+ (NEGATIVE) Urine Collection Type VOID Urine Color YELLOW (YELLOW) Urine Appearance SLIGHTLY HAZY (CLEAR) H Urine Bilirubin NEGATIVE MG/DL (NEGATIVE) Urine Ketones NEGATIVE (NEGATIVE) Urine Specific [place] 1.015 (1.005-1.035) Urine pH 5 (5.0-6.0) Urine Protein NEGATIVE (NEGATIVE) Urine Urobilinogen NORMAL (NEGATIVE) Urine Nitrate NEGATIVE (NEGATIVE) Urine Leukocyte Esterase 25 /uL TRACE (NEGATIVE) Urine Blood NEGATIVE (NEGATIVE) Urine RBC NONE SEEN RBC/HPF (NONE Urine WBC 5-10 WBC/HPF (0-2) H Urine Squamous Epithelial Cells FEW #/HPF (FEW) Urine Bacteria FEW (NONE SEEN) H Urine Yeast MODERATE Urine Glucose NORMAL (NEGATIVE) Test 07/28/19 12:50 07/28/19 12:52 Lactic Acid Level 3.4 mmol/L (0.50-2.00) H Pro-B-Type Natriuretic Peptide 63407 pg/mL (0-125) H Blood Gas Sample Site RT BRACIAL ARTERY Blood pH 7.224 (7.350-7.450) Blood Gas PCO2 72.6 mmHg (35.0-45.0) *H Blood Gas PO2 62.9 mmHg (80.0-100.0) L Blood Gas HCO3 29.3 mmol/L (22.0-26.0) H Blood Gas Base Excess 0.5 mmol/L (-2.0-2.0) Constantine Test N/A Arterial Blood Oxygen Saturation 85.7 % (94.0-97.00) L Deoxyhemoglobin 14.2 % (0.0-5.0) H Carboxyhemoglobin 0.5 % (0.0-3.9) Methemoglobin 0.4 % (0.00-5.0) Total Hemoglobin 10.2 % (12.0-17.8) L Total Oxygen Concentration 12.2 % (13.5-17.5) L Blood Gas Temperature 37 Oxygen Delivery Method BIPAP FiO2 33.0 % (20-101) Bicarbonate 31.5 mmol/L (23-27) H Progress Progress Pt with pneumonia/sepsis. exacerbated by severe CHF and chronic renal failure. Has maintained reasonable sats and respiratory effort on BiPAP. Pt is DNR and so have not intubated at this time. Family is present. BP previously 110 syst now has fallen to 70s systolic. Will start pressors. Accepted for transfer at [facility]. Will sent by [facility] if weather permits. Departure Time of Disposition: 14:21 Disposition: 70 DISC/XFER TO [facility] Impression: Primary Impression: Pneumonia Additional Impressions: Sepsis CHF (congestive heart failure) Chronic renal failure, stage 3 (moderate) Condition: Critical If Transfer, List PT Destinati: [facility] Duration or Time Spent with Pa: 90 Critical Care Note Total Time (mins): 68 Problem Qualifiers Primary Impression: Pneumonia Pneumonia type: due to unspecified organism Laterality: bilateral Lung location: lower lobe of lung Qualified Codes: J18.9 - Pneumonia, unspecified organism Additional Impressions: Sepsis Sepsis type: sepsis due to unspecified organism Sepsis acute organ dysfu nction status: with acute organ dysfunction Severe sepsis acute organ dysfunction type: acute renal failure Acute renal failure type: unspecified Severe sepsis shock status: with septic shock Qualified Codes: A41.9 - Sepsis, unspecified organism; R65.21 - Severe sepsis with septic shock; N17.9 - Acute kidney failure, unspecified CHF (congestive heart failure) Heart failure type: unspecified Heart failure chronicity: chronic Qualified Codes: I50.9 - Heart failure, unspecified MIMI RODRIGUEZ MD Jul 28, 2019 10:01
[2019-07-28 10:36] LABS: BASOPHIL # 0.1 10^3/uL (0.0-0.1); BASOPHIL % 0.3 % (0.0-0.2); LYMPHOCYTES # 0.8 10^3/uL (1.0-4.8); LYMPHOCYTES % 4.8 % (24.0-44.0); MEAN CORP HGB 30.7 pg (26-34); MONOCYTES # 2.1 10^3/uL (0.3-0.8); MONOCYTES % 13.1 % (5.0-12.0); NEUTROPHILS % 80.7 % (41.0-85.0); RED CELL DISTRIBUTION WIDTH 16.3 % (11.5-14.5)
[2019-07-28 10:49] LABS: ABG PCO2 73.3 mmHg (35.0-45.0); ABG PH 7.212 (7.350-7.450); BE(B) -0.3 mmol/L (-2.0-2.0); HCO3act 28.8 mmol/L (22.0-26.0); pO2 161.1 mmHg (80.0-100.0)
--- NOTE | 2019-07-28 10:55 | DIREP ---
PROCEDURE:CHEST 1 VIEW COMPARISON:[facility], CR, XRAY CHEST 2 VWS, 02/04/2019, 02:09 PM. INDICATIONS:dyspnea FINDINGS: LUNGS/PLEURA:No significant pulmonary parenchymal abnormalities. No effusions. VASCULATURE:Normal. Unremarkable pulmonary vasculature. CARDIAC:Normal. No cardiac silhouette abnormality or cardiomegaly. MEDIASTINUM:Normal. No visible mass or adenopathy. BONES:Normal. No fracture or visible bony lesion. OTHER:Negative. CONCLUSION:No acute airspace disease Dictated by: Nakul Mccullough DO on 07/28/2019 at 10:51 AM
--- NOTE | 2019-07-28 11:00 | NUR ---
UPDATE PATIENT RESTING IN BED IN NO DISTRESS AT THIS TIME. VS REMAIN WNL FOR PATIENT. SHE REMAINS ON BI PAP AT THIS TIME. RT CONTINUES TO MONITOR. FAMILY AT BEDSIDE.
[2019-07-28 11:01] LABS: CALCIUM 9.1 mg/dL (8.4-10.5); CARBON DIOXIDE 29.1 mmol/L (20.0-32)
[2019-07-28] MEDS ORDERED: SPS ONE (11:08)
[2019-07-28] MEDS ORDERED: VANCOMYCIN HCL IV ONE (11:30)
[2019-07-28] MEDS ORDERED: NS IV ONE (11:30)
[2019-07-28] MEDS ORDERED: ZOSYN 4.5 GM 4.5 GM in NS 100ML 100 ML IV SCH (11:30)
--- NOTE | 2019-07-28 11:30 | DIREP ---
PROCEDURE:CT HEAD OR BRAIN W/O CONTRAST COMPARISON:[facility], CT, CT HEAD BRAIN W/O CONTRAST, 07/15/2019, 11:00 AM. INDICATIONS:altered mental status TECHNIQUE:Limited due to patient motion. CT images were created without intravenous contrast. FINDINGS: VENTRICLES:The ventricles are normal in size and configuration. CEREBRUM:Small foci of diminished attenuation in the supratentorial white matter consistent with mild leukoaraiosis. Mild basal ganglia calcifications. CEREBELLUM:Cerebellar calcifications. BRAINSTEM:Negative. BASAL CISTERNS:Negative. SKULL:Normal. SINUSES:Normal. OTHER:None CONCLUSION:Severely limited due to patient motion. No visualized acute intracranial process. Dictated by: Nakul Mccullough DO on 07/28/2019 at 11:28 AM
--- NOTE | 2019-07-28 11:52 | DIREP ---
PROCEDURE:CT ABDOMEN W/ CONTRAST COMPARISON:[facility], , MAMMO BILATERAL SCREENING, 05/07/2019, 03:12 PM. INDICATIONS:Altered mental status, abd pain/distention TECHNIQUE:Axial images were created through the abdomen with non-ionic intravenous contrast material. No oral contrast was administered. Moderately limited due to respiratory motion Sagittal and coronal reconstructions were performed from source images. FINDINGS: LUNG BASES:Right basilar moderate effusion and consolidative airspace disease with small left basilar effusion. See dedicated report. LIVER:Normal. No significant liver lesions are identified. BILIARY:Gallbladder not well seen. PANCREAS:Normal. No lesion, fluid collection, ductal dilatation, or atrophy. SPLEEN:Normal. No enlargement or focal lesion. ADRENALS:Normal. No mass or enlargement. URINARY TRACT:Bilateral renal atrophy and renal cysts. No obstructive uropathy or hydronephrosis. . AORTA/VASCULAR:Atherosclerotic plaque. No aneurysm RETROPERITONEUM:Normal. No mass or adenopathy. BOWEL/MESENTERY:Normal. There is no intestinal obstruction, free fluid, free air or mesenteric inflammatory changes. Diverticulosis, without diverticulitis. ABDOMINAL WALL:Normal. No mass or hernia. PELVIC ORGANS:The pelvis was not imaged. BONES:Multilevel degenerative changes. No visualized acute fracture. OTHER:Diffuse anasarca. Indeterminate left breast mass CONCLUSION: 1. Diverticulosis, without diverticulitis. 2. No visualized ascites within the abdomen. 3. Diffuse anasarca. 4. Indeterminate left breast mass. Dedicated mammogram follow-up recommended 5. Consolidation and moderate effusion within the right lung base with small left effusion.. Dictated by: Nakul Mccullough DO on 07/28/2019 at 11:44 AM
[2019-07-28 12:01] LABS: ANISOCYTOSIS 1+ (NEGATIVE); BAND NEUTROPHILS 1 % (2-6); LYMPHOCYTE 6 % (25-36); MONOCYTE 13 % (3-9); SEGMENTED NEUTROPHILS 80 % (31-76)
[2019-07-28 12:07] LABS: BILIRUBIN,URINE NEGATIVE (NEGATIVE); UROBILINOGEN,URINE NORMAL (NEGATIVE)
--- NOTE | 2019-07-28 12:07 | PCM.EKG ---
[facility] Test Date: 2019-07-28 Test Time: 10:16:53 Pat Name: DANNI ESPINAL Department: Room: Gender: F [employer]: RT : 1950 Requested By: MIMI RODRIGUEZ Order Number: [id number] Reading MD: Measurements Intervals [place] Rate: 100 P: [place]: QRS: -57 QRSD: 144 T: 47 QT: 363 QTc: 469 Interpretive Statements Atrial fibrillation RBBB and LAFB No previous ECG available for comparison Please click the below link to view image of tracing.
[2019-07-28 12:14] LABS: APPEARANCE,URINE SLIGHTLY HAZY (CLEAR); UA COLOR YELLOW (YELLOW)
[2019-07-28 12:15] LABS: YEAST,URINE MODERATE
--- NOTE | 2019-07-28 12:15 | DIREP ---
PROCEDURE:CT CHEST WITHOUT CONTRAST TECHNIQUE:Axial cuts were obtained through the chest, without intravenous contrast material. The images were viewed at lung and soft tissue settings. COMPARISON:None. INDICATIONS:altered mental status/dyspnea FINDINGS: LUNGS:Moderate right pleural effusion and small left pleural effusion with adjacent consolidation and infiltrate. Exophytic and nodular infiltrate in the anterior right lung base poorly evaluated due to motion measuring 1.1 cm. CARDIAC:Cardiomegaly. THORACIC AORTA:Atherosclerotic plaque in the aorta major branches. MEDIASTINUM/ADIA:Normal. PLEURA:See above CHEST WALL:Normal. LIMITED ABDOMEN:Normal. BONES:Normal. THYROID:Normal. OTHER:Prominent SVC, IVC, and right IJ which could suggest right heart strain. Anasarca partially visualized. CONCLUSION: 1. Significantly limited study due to lack of IV contrast severe streak artifact body habitus, some areas almost nondiagnostic. 2. Moderate right and small left pleural with adjacent consolidation and infiltrate. 3. Nodule versus pleural based infiltrate anterior right lung apex , attention on follow-up. 4. Anasarca soft tissues partially visualized. Cardiomegaly. Suggestion of right heart strain. Other findings as above. Dictated by: Miguel Sanchez MD on 07/28/2019 at 12:02 PM
--- NOTE | 2019-07-28 12:20 | NUR ---
UPDATE REPEAT ABG ORDERD RT AWARE.
[2019-07-28] MEDS ORDERED: NS 100ML 100 ML IV ONE (12:41)
[2019-07-28 13:01] LABS: ABG PCO2 72.6 mmHg (35.0-45.0); ABG PH 7.224 (7.350-7.450); BE(B) 0.5 mmol/L (-2.0-2.0); HCO3act 29.3 mmol/L (22.0-26.0); pO2 62.9 mmHg (80.0-100.0)
--- NOTE | 2019-07-28 14:00 | NUR ---
UPDATE PATIENT HYPOTENSIVE AND BP RECHECKED SYSTOLIC REMAINS IN THE 70S MANUAL BP OBTAINED AND NO CHANGE. ORDERS RECEIVED FOR DOPANIME GTT PER PROTOCOL.
--- NOTE | 2019-07-28 14:09 | NUR ---
UPDATE DR. RODRIGUEZ CALLED [facility] TO REQUEST TRANSFER AND AWATING RETURN CALL. [facility] IS UNABLE T ACCEPT TRANSFER AT THIS TIME.
[2019-07-28] MEDS ORDERED: DOPamine 400 MG/D5W 250 ML 250 ML IV ONE (14:10)
[2019-07-28] MEDS ORDERED: NS 1000ML 1,000 ML ONE (14:10)
--- NOTE | 2019-07-28 14:15 | NUR ---
UPDATE RECEIVED RETURN CALL FROM AT [facility] AND PATIENT WAS ACCEPTED. REQUESTED [facility] TO TRANSPORT PATIENT.
[2019-07-28] MEDS ORDERED: PHENERGAN ONE (14:22)
[2019-07-28] MEDS ORDERED: MORPHINE SULFATE ONE (14:23)
--- NOTE | 2019-07-28 14:25 | NUR ---
[facility] RECEIVED CALL BACK FROM [facility] AND THEY WILL TRANSPORT PATIENT TO [facility].
[2019-07-28] MEDS ORDERED: DOPamine 400 MG/D5W 250 ML 250 ML IV SCH (14:30)
--- NOTE | 2019-07-28 14:33 | NUR ---
UPDATE DOPAMINE IS INFUSING AT 4MCG/MIN WITHOUT COMPLICATION.
--- NOTE | 2019-07-28 14:37 | NUR ---
[facility] AR[facility]IVED AND REPORT GIVEN THEY ASSUMED CARE OF PATIENT.
[2019-07-28] MEDS ORDERED: VANCOMYCIN HCL 1 GM ONE (14:38)
[2019-07-28] MEDS ORDERED: NS 250ML 250 ML IV ONE ×2 (14:39→14:58)
[2019-07-28] MEDS ORDERED: LEVOPHED ONE (14:58)
--- NOTE | 2019-07-28 15:36 | NUR ---
REPORT CALLED REPORT TO [facility] AT [facility].
== END 2019-07-28 15:20 | disposition other institution (70) ==
LOC: ER 09:45 → EDBD 09:45 → ER 15:20
DX: A41.9 Sepsis, unspecified organism (principal); R65.20 Severe sepsis without septic shock; I50.9 Heart failure, unspecified; N18.3 Chronic kidney disease, stage 3 (moderate); I13.0 Hypertensive heart and chronic kidney disease with heart failure and stage 1 through stage 4 chronic kidney disease, or unspecified chronic kidney disease; E11.22 Type 2 diabetes mellitus with diabetic chronic kidney disease; J18.9 Pneumonia, unspecified organism; J44.9 Chronic obstructive pulmonary disease, unspecified; Z79.82 Long term (current) use of aspirin; Z79.899 Other long term (current) drug therapy; Z79.4 Long term (current) use of insulin; Z88.2 Allergy status to sulfonamides
CPT/HCPCS: 36415; 36600; 70450; 71045; 71250; 74150; 80053; 81000; 82550; 82553; 82803 ×2; 83605 ×2; 83880; 84484; 85025; 87040 ×2; 87086; 87102; 87804 ×2; 93005; 94660; 96361; 96365; 96367; 99291; J2270; J2550; J3370 ×2; J7030; J7050 ×4; 96368